=== PATIENT | female | born 1990 | race Caucasian/White ===

== ENCOUNTER 2021-05-02 22:33 | Emergency (ER) | payer MEDICAID ==
[~2021-05-02] VITALS: Ht 160 cm; Wt 63.5 kg
--- NOTE | 2021-05-02 22:58 | NUR ---
Patient to ER bed 03 to gown for evaluation. Side rails up.
[2021-05-02 22:59] VITALS: BP_SYST 140
--- NOTE | 2021-05-02 23:00 | NUR ---
Pt brought by self, A&Ox4, pt presents to ER with L foot wound/ states possible spider bite, pt afebrile, skin pink and warm, cap refill <3.
--- NOTE | 2021-05-02 23:13 | NUR ---
Dr Isaacs evaluating patient at bedside
[2021-05-02] MEDS ORDERED: cefTRIAXone 1 GM in LIDOCAINE 1%, 20 ML MDV 2.1 ML IM ONE (23:30)
[2021-05-02] MEDS ORDERED: CLIN-142 PO (23:34)
--- NOTE | 2021-05-03 00:15 | NUR ---
Patient given written and verbal discharge instructions and verbalizes understanding. ER MD discussed with patient the results and treatment provided. Patient in stable condition. ID arm band removed. Rx of CLINDAMYCIN given. Patient educated on pain management and to follow up with PMD. Pain Scale 0/10. Opportunity for questions provided and answered. Medication side effect fact sheet provided.
[2021-05-03 00:16] VITALS: BP_SYST 140
== END 2021-05-03 00:15 | disposition home or self-care (01) ==
LOC: SED 22:33
DX: L08.9 Local infection of the skin and subcutaneous tissue, unspecified (principal)
CPT/HCPCS: 96372; 99283; J0696; J2001